=== PATIENT | male | born 1955 | race Caucasian/White ===

== ENCOUNTER 2017-12-04 10:18 | Inpatient (IN) | payer OTHER ==
[2017-12-04] MEDS ORDERED: HYDROmorphone 1 MG/ML Syringe IVPUSH ONE (11:13)
[2017-12-04] MEDS ORDERED: Sodium Chloride 0.9% 1,000 ML IV SCH (11:15)
--- NOTE | 2017-12-04 11:17 | EDM.PDOC ---
ED HPI GENERAL MEDICAL PROBLEM - General Chief Complaint: Abdominal Pain Stated Complaint: STOMACH PAIN Time Seen by Provider: 12/04/17 11:02 Source of Information: Reports: Patient History Limitations: Reports: No Limitations - History of Present Illness INITIAL COMMENTS - FREE TEXT/NARRATIVE: Comes from out of town with abdominal pain, centralized that started 2 days ago. No fever but has felt sweaty. Hasn't even felt this before. Denies surgery for daisy/appy. Described his pain as "my stomach is in knots"; dull and achy and then at times sharp. Slight nausea as well; no appetite. Tried a tums, no relief. Did go out to eat yesterday. 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) Middle Abdomen Pain Score (Numeric/FACES): 6 - Related Data Allergies Allergy/AdvReac Type Severity Reaction Status Date / Time No Known Allergies Allergy Verified 12/04/17 11:00 Home Meds: Home Meds Aspirin 81 mg PO DAILY 12/04/17 [History] Losartan [Cozaar] 100 mg PO DAILY 12/04/17 [History] Metoprolol Succinate 50 mg PO DAILY 12/04/17 [History] atorvaSTATin Calcium [Atorvastatin Calcium] 20 mg PO DAILY 12/04/17 [History] glipiZIDE [Glucotrol] 10 mg PO DAILY 12/04/17 [History] metFORMIN [Glucophage] 2,000 mg PO DAILY 12/04/17 [History] Past Medical History Cardiovascular History: Reports: Hypertension, Other (See Below) Other Cardiovascular History: aortic stenosis Endocrine/Metabolic History: Reports: Diabetes, Type II - Infectious Disease History Infectious Disease History: Reports: Chicken Pox Social & Family History - Tobacco Use Smoking Status *Q: Never Smoker - Caffeine Use Caffeine Use: Reports: Coffee, Soda - Recreational Drug Use Recreational Drug Use: No ED ROS GENERAL - Review of Systems Review Of Systems: See Below Constitutional: Reports: Decreased Appetite Respiratory: Reports: No Symptoms Cardiovascular: Reports: No Symptoms Endocrine: Reports: No Symptoms GI/Abdominal: Reports: Abdominal Pain, Nausea : Reports: No Symptoms Musculoskeletal: Reports: No Symptoms Skin: Reports: No Symptoms Neurological: Reports: No Symptoms ED EXAM, GENERAL - Physical Exam Exam: See Below Exam Limited By: No Limitations General Appearance: Alert, WD/WN, No Apparent Distress Nose: Normal Inspection Throat/Mouth: Normal Inspection Head: Atraumatic, Normocephalic Neck: Normal Inspection, Full Range of Motion Respiratory/Chest: No Respiratory Distress, Lungs Clear, Normal Breath Sounds Cardiovascular: Regular Rate, Rhythm, Systolic Murmur (2/6 pansystolic em) GI/Abdominal: Normal Bowel Sounds, Other (obese, tender with palpation) Back Exam: Full Range of Motion Extremities: Normal Range of Motion Neurological: Alert, Oriented, CN II-XII Intact, Normal Cognition Psychiatric: Normal Affect, Normal Mood Skin Exam: Warm, Dry, Intact Course - Vital Signs Last Recorded V/S: Last Vital Signs Temp 97.4 F 12/04/17 15:01 Pulse 63 12/04/17 15:01 Resp 16 12/04/17 15:01 BP 124/64 12/04/17 15:01 Pulse Ox 97 12/04/17 16:44 - Orders/Labs/Meds Orders: Active Orders 24 hr Category Date Time Status Abdomen Pelvis w Cont [CT] Stat Exams 12/04/17 11:59 Taken Medication Orders Acetaminophen (Tylenol) 650 mg PO Q4H PRN PRN Reason: Pain (Mild 1-3)/fever Aspirin (Aspirin) 81 mg PO DAILY [facility] Dextrose (Glutose 15) 15 gm PO ONETIME PRN PRN Reason: Hypoglycemia Dextrose/Water (Dextrose 50% In Water) 50 ml IV ONETIME PRN PRN Reason: Hypoglycemia Hydromorphone HCl (Dilaudid) 0.5 mg IVPUSH Q2H PRN PRN Reason: Pain Sodium Chloride (Normal Saline) 1,000 mls @ 125 mls/hr IV ASDIRECTED [facility] Insulin Aspart (Novolog) 0 unit SUBCUT QIDACANDBED [facility]; Protocol Losartan Potassium (Cozaar) 100 mg PO DAILY [facility] Metoprolol Succinate (Toprol Xl) 50 mg PO DAILY [facility] Ondansetron HCl (Zofran) 4 mg IV Q4H PRN PRN Reason: Nausea/Vomiting Pantoprazole Sodium (Protonix Iv) 40 mg IVPUSH Q24H [facility] Last Admin: 12/04/17 16:06 Dose: 40 mg Sodium Chloride (Saline Flush) 10 ml FLUSH ASDIRECTED PRN PRN Reason: Keep Vein Open Labs: Laboratory Tests 12/04/17 12/04/17 12/04/17 Range/Units 11:25 11:25 11:25 WBC 9.6 (4.5-11.0) K/uL RBC 4.80 (4.30-5.90) M/uL Hgb 13.8 (12.0-15.0) g/dL Hct 40.8 (40.0-54.0) % MCV 85 (80-98) fL MCH 29 (27-31) pg MCHC 34 (32-36) % Plt Count 147 L (150-400) K/uL Neut % (Auto) 74 H (36-66) % Lymph % (Auto) 14 L (24-44) % [place] % (Auto) 12 H (2-6) % Eos % (Auto) 1 L (2-4) % Baso % (Auto) 0 (0-1) % Sodium 137 L (140-148) mmol/L Potassium 4.4 (3.6-5.2) mmol/L Chloride 101 (100-108) mmol/L Carbon Dioxide 26 (21-32) mmol/L Anion Gap 14.4 H (5.0-14.0) mmol/L BUN 19 H (7-18) mg/dL Creatinine 1.0 (0.8-1.3) mg/dL Est Cr Clr Drug Dosing 80.53 mL/min Estimated GFR (MDRD) > 60 (>60) Glucose 184 H (74-106) mg/dL Calcium 9.2 (8.5-10.1) mg/dL Total Bilirubin 1.0 (0.2-1.0) mg/dL AST 23 (15-37) U/L ALT 38 (12-78) U/L Alkaline Phosphatase 50 (46-116) U/L Total Protein 7.1 (6.4-8.2) g/dL Albumin 3.4 (3.4-5.0) g/dL Globulin 3.7 H (2.3-3.5) g/dL Albumin/Globulin Ratio 0.9 L (1.2-2.2) Amylase 918 H (25-115) U/L Lipase 7347 H (73-393) U/L Meds: Medications Generic Name Dose Route Start Last Admin Trade Name Kyle PRN Reason Stop Dose Admin Acetaminophen 650 mg 12/04/17 14:52 Tylenol PO Q4H PRN Pain (Mild 1-3)/fever Aspirin 81 mg 12/05/17 09:00 Aspirin PO DAILY [facility] Dextrose 15 gm 12/04/17 14:52 Glutose 15 PO ONETIME PRN Hypoglycemia Dextrose/Water 50 ml 12/04/17 14:52 Dextrose 50% In Water IV ONETIME PRN Hypoglycemia Hydromorphone HCl 0.5 mg 12/04/17 14:52 Dilaudid IVPUSH Q2H PRN Pain Sodium Chloride 1,000 mls @ 125 mls/hr 12/04/17 14:52 Normal Saline IV ASDIRECTED [facility] Insulin Aspart 0 unit 12/04/17 17:00 Novolog SUBCUT QIDACANDBED [facility] Protocol Losartan Potassium 100 mg 12/05/17 09:00 Cozaar PO DAILY [facility] Metoprolol Succinate 50 mg 12/05/17 09:00 Toprol Xl PO DAILY [facility] Ondansetron HCl 4 mg 12/04/17 14:52 Zofran IV Q4H PRN Nausea/Vomiting Pantoprazole Sodium 40 mg 12/04/17 16:00 12/04/17 16:06 Protonix Iv IVPUSH 40 mg Q24H [facility] Administration Sodium Chloride 10 ml 12/04/17 14:52 Saline Flush FLUSH ASDIRECTED PRN Keep Vein Open Discontinued Medications Generic Name Dose Route Start Last Admin Trade Name Kyle PRN Reason Stop Dose Admin Hydromorphone HCl 1 mg 12/04/17 11:13 12/04/17 11:36 Dilaudid IVPUSH 12/04/17 11:14 1 mg ONETIME ONE Administration Hydromorphone HCl 1 mg 12/04/17 13:53 12/04/17 14:03 Dilaudid IVPUSH 1 mg Q1H PRN Administration Pain Sodium Chloride 1,000 mls @ 75 mls/hr 12/04/17 11:15 12/04/17 11:37 Normal Saline IV 75 mls/hr ASDIRECTED [facility] Administration Sodium Chloride 100 mls @ 3 mls/sec 12/04/17 12:15 12/04/17 12:30 Normal Saline IV 3 mls/sec ASDIRECTED [facility] Administration Iopamidol 150 ml 12/04/17 12:15 12/04/17 12:30 Isovue-300 (61%) IV 150 ml . DIRECTED [facility]A Administration Ondansetron HCl 4 mg 12/04/17 12:55 Zofran IVPUSH Q6H PRN Nausea/Vomiting - Re-Assessments/Exams Free Text/Narrative Re-Assessment/Exam: 12/04/17 12:33 [place] better after dilaudid; pain from 6 to a 3; resting comfortably Waiting for CT to come and take him for scan. Free Text/Narrative Re-Assessment/Exam: 12/04/17 14:02 Spoke with Hospitalist for admission. He is starting to have pain again, -12/13 Will given another 1 mg of Dilaudid. Departure - Departure Time of Disposition: 14:06 (Time hospitalist came to admit) Disposition: Admitted As Inpatient 65 Condition: Fair Clinical Impression: Pancreatitis Qualifiers: Chronicity: acute Pancreatitis type: unspecified pancreatitis type Acute pancreatitis complication: unspecified Qualified Code(s): K85.90 - Acute pancreatitis without necrosis or infection, unspecified - Discharge Information - Problem List & Annotations (1) Abdominal pain SNOMED Code(s): 40358591 Code(s): R10.9 - UNSPECIFIED ABDOMINAL PAIN Status: Acute Priority: Medium Current Visit: Yes Qualifiers: Abdominal location: left upper quadrant Qualified Code(s): R10.12 - Left upper quadrant pain (2) Pancreatitis SNOMED Code(s): 06482006 Code(s): K85.90 - ACUTE PANCREATITIS WITHOUT NECROSIS OR INFECTION, UNSP Status: Acute Current Visit: Yes Qualifiers: Chronicity: acute Pancreatitis type: unspecified pancreatitis type Acute pancreatitis complication: unspecified Qualified Code(s): K85.90 - Acute pancreatitis without necrosis or infection, unspecified - Problem List Review Problem List Initiated/Reviewed/Updated: Yes - My Orders Last 24 Hours: My Active Orders 12/04/17 11:59 Abdomen Pelvis w Cont [CT] Stat - Assessment/Plan Last 24 Hours: My Active Orders 12/04/17 11:59 Abdomen Pelvis w Cont [CT] Stat
[2017-12-04] MEDS ORDERED: Sodium Chloride 0.9% 100 ML IV SCH (12:15)
[2017-12-04] MEDS ORDERED: Iopamidol 612 MG/ML 150 ML Bottle IV SCH (12:15)
[2017-12-04] MEDS ORDERED: Ondansetron 4 MG/2 ML SDV IVPUSH PRN (12:55)
[2017-12-04] MEDS ORDERED: HYDROmorphone 1 MG/ML Syringe IVPUSH PRN (13:53)
--- NOTE | 2017-12-04 14:37 | PCM.HP ---
H&P History of Present Illness - General Date of Service: 12/04/17 Admit Problem/Dx: Admission Diagnosis/Problem Admission Diagnosis/Problem Pancreatitis Source of Information: Patient, Family, Provider, RN Notes Reviewed History Limitations: Reports: No Limitations - History of Present Illness Initial Comments - Free Text/Narative: Mr. Armijo is a 62-year-old gentleman who is admitted through the emergency department with abdominal pain and nausea secondary to pancreatitis. He has not felt well over the past 2 days with pain in his upper mid abdomen radiating to both flanks. Pain is been intermittent until today and has seemed to be worse after he is had something to eat. Today the pain seemed to be more intense and continuous associated with nausea so he presented to the emergency department for further evaluation. On evaluation lipase level is found to be significantly elevated 7300 and his amylase level is 900. He denies any previous history of pancreatitis. Liver enzymes are normal, he reports that he still has his gallbladder. CT scan of the abdomen showed evidence of inflammation around the pancreas consistent with pancreatitis. He does use alcohol on a regular basis, typically weekends where he may consume several ounces each night. Middle Abdomen Pain Score (Numeric/FACES): 6 - Related Data Allergies/Adverse Reactions: Allergies Allergy/AdvReac Type Severity Reaction Status Date / Time No Known Allergies Allergy Verified 12/04/17 11:00 Home Medications: Home Meds Aspirin 81 mg PO DAILY 12/04/17 [History] Losartan [Cozaar] 100 mg PO DAILY 12/04/17 [History] Metoprolol Succinate 50 mg PO DAILY 12/04/17 [History] atorvaSTATin Calcium [Atorvastatin Calcium] 20 mg PO DAILY 12/04/17 [History] glipiZIDE [Glucotrol] 10 mg PO DAILY 12/04/17 [History] metFORMIN [Glucophage] 2,000 mg PO DAILY 12/04/17 [History] Past Medical History Cardiovascular History: Reports: Hypertension, Other (See Below) Other Cardiovascular History: aortic stenosis Endocrine/Metabolic History: Reports: Diabetes, Type II - Infectious Disease History Infectious Disease History: Reports: Chicken Pox Social & Family History - Tobacco Use Smoking Status *Q: Never Smoker - Caffeine Use Caffeine Use: Reports: Coffee, Soda - Recreational Drug Use Recreational Drug Use: No H&P Review of Systems - Review of Systems: Review Of Systems: See Below General: Reports: Weakness, Diaphoresis, Decreased Appetite. Denies: Fever, Chills HEENT: Reports: No Symptoms Pulmonary: Reports: No Symptoms Cardiovascular: Reports: No Symptoms Gastrointestinal: Reports: Abdominal Pain, Decreased Appetite, Distension, Nausea, Vomiting. Denies: Black Stool, Bloody Stool, Constipation, Diarrhea, Difficulty Swallowing Genitourinary: Reports: No Symptoms Musculoskeletal: Reports: Joint Pain Skin: Reports: No Symptoms Psychiatric: Reports: No Symptoms Neurological: Reports: No Symptoms Hematologic/Lymphatic: Reports: No Symptoms Immunologic: Reports: No Symptoms Exam - Exam Exam: See Below - Vital Signs Vital Signs: Last Vital Signs Temp 97.6 F 12/04/17 11:15 Pulse 73 12/04/17 11:15 Resp 13 12/04/17 11:15 BP 130/85 12/04/17 11:15 Pulse Ox 96 12/04/17 11:15 Weight: 349 lb 13.977 oz - Exam Quality Assessment: DVT Prophylaxis General: Alert, Oriented, Cooperative, Moderate Distress HEENT: Conjunctiva Clear, Hearing Intact, Mucosa Moist & [place], Normal Nasal Septum, Posterior Pharynx Clear, Pupils Equal Neck: Supple, Trachea Midline, +2 Carotid Pulse wo Bruit Lungs: Clear to Auscultation, Normal Respiratory Effort Cardiovascular: Regular Rate, Regular Rhythm, Normal S1, Normal S2, Systolic Murmur. No: Diastolic Murmur GI/Abdominal Exam: Soft, Non-Tender, No Organomegaly, No Distention Extremities: Non-Tender, No Pedal Edema Skin: Warm, Dry, Intact Neurological: Cranial Nerves Intact, Strength Equal Bilateral, Normal Speech, Normal Tone, Sensation Intact. No: Focal Deficit Neuro Extensive - Mental Status: Alert, Oriented x3, Normal Mood/Affect, Normal Cognition, Memory Intact - Patient Data Lab Results Last 24 hrs: Laboratory Results - last 24 hr 12/04/17 12/04/17 12/04/17 Range/Units 11:25 11:25 11:25 WBC 9.6 (4.5-11.0) K/uL RBC 4.80 (4.30-5.90) M/uL Hgb 13.8 (12.0-15.0) g/dL Hct 40.8 (40.0-54.0) % MCV 85 (80-98) fL MCH 29 (27-31) pg MCHC 34 (32-36) % Plt Count 147 L (150-400) K/uL Neut % (Auto) 74 H (36-66) % Lymph % (Auto) 14 L (24-44) % [place] % (Auto) 12 H (2-6) % Eos % (Auto) 1 L (2-4) % Baso % (Auto) 0 (0-1) % Sodium 137 L (140-148) mmol/L Potassium 4.4 (3.6-5.2) mmol/L Chloride 101 (100-108) mmol/L Carbon Dioxide 26 (21-32) mmol/L Anion Gap 14.4 H (5.0-14.0) mmol/L BUN 19 H (7-18) mg/dL Creatinine 1.0 (0.8-1.3) mg/dL Est Cr Clr Drug Dosing 80.53 mL/min Estimated GFR (MDRD) > 60 (>60) Glucose 184 H (74-106) mg/dL Calcium 9.2 (8.5-10.1) mg/dL Total Bilirubin 1.0 (0.2-1.0) mg/dL AST 23 (15-37) U/L ALT 38 (12-78) U/L Alkaline Phosphatase 50 (46-116) U/L Total Protein 7.1 (6.4-8.2) g/dL Albumin 3.4 (3.4-5.0) g/dL Globulin 3.7 H (2.3-3.5) g/dL Albumin/Globulin Ratio 0.9 L (1.2-2.2) Amylase 918 H (25-115) U/L Lipase 7347 H (73-393) U/L Result Diagrams: 12/04/17 11:25 12/04/17 11:25 *Q Meaningful Use (ADM) - VTE Risk Assess *Q Each Risk Factor Represents 1 Point: Swollen Legs, Current, Obesity ( BMI > 25 kg/m2) Total Score 1 Point Risk Factors: 2 Each Risk Factor Represents 2 Points: Age 60 - 74 Years Total Score 2 Point Risk Factors: 2 Each Risk Factor Represents 3 Points: None Total Score 3 Point Risk Factors: 0 Each Risk Factor Represents 5 Points: None Total Score 5 Point Risk Factors: 0 Venous Thromboembolism Risk Factor Score *Q: 4 Problem List Initiated/Reviewed/Updated: Yes Orders Last 24hrs: Active Orders 24 hr Category Date Time Status Patient Status Manage Transfer [TRANSFER] Routine ADT 12/04/17 13:58 Ordered Peripheral IV Care [RC] . DIRECTED Care 12/04/17 11:12 Active NPO Now [Nothing per Oral Now Diet] [DIET] Diet 12/04/17 Dinner Active Abdomen Pelvis w Cont [CT] Stat Exams 12/04/17 11:59 Taken HYDROmorphone [Dilaudid] Med 12/04/17 13:53 Active 1 mg IVPUSH Q1H PRN Ondansetron [Zofran] Med 12/04/17 12:55 Active 4 mg IVPUSH Q6H PRN Sodium Chloride 0.9% [Normal Saline] 1,000 ml Med 12/04/17 11:15 Active IV ASDIRECTED Sodium Chloride 0.9% [Normal Saline] 100 ml Med 12/04/17 12:15 Active IV ASDIRECTED Peripheral IV Insertion Adult [OM.PC] Stat Oth 12/04/17 11:11 Ordered Resuscitation Status Routine Resus Stat 12/04/17 13:59 Ordered Medication Orders Hydromorphone HCl (Dilaudid) 1 mg IVPUSH Q1H PRN PRN Reason: Pain Last Admin: 12/04/17 14:03 Dose: 1 mg Sodium Chloride (Normal Saline) 1,000 mls @ 75 mls/hr IV ASDIRECTED [facility] Last Admin: 12/04/17 11:37 Dose: 75 mls/hr Sodium Chloride (Normal Saline) 100 mls @ 3 mls/sec IV ASDIRECTED [facility] Last Admin: 12/04/17 12:30 Dose: 3 mls/sec Ondansetron HCl (Zofran) 4 mg IVPUSH Q6H PRN PRN Reason: Nausea/Vomiting Assessment/Plan Comment:: ASSESSMENT AND PLAN ACUTE PANCREATITIS-likely secondary to alcohol use, there is no evidence of significant liver enzyme elevation. -Alcohol cessation -Nothing by mouth -IV fluids for hydration -Zofran as needed for nausea -IV Dilaudid for pain control -Reassess pancreatic enzymes in a.m. TYPE 2 DIABETES MELLITUS -4 times a day glucometers -Hold metformin and glipizide -Low-dose sliding scale NovoLog AORTIC STENOSIS HYPERTENSION -Continue outpatient medical regimen MAINTENANCE ISSUES -DVT prophylaxis; SCUDs -GI prophylaxis; Protonix 40 mg IV daily -Hoffmann catheter; not indicated -Nutrition; nothing by mouth -Nicotine dependence; not required CODE STATUS-FULL CODE ADMISSION STATUS-patient will be admitted to inpatient status, expect at least a 2 night hospital stay for evaluation and management of problems as outlined above. At the time of this admission I do not reasonably expected evaluation and management of this problem will require more than a 96 hour hospital stay. DISPOSITION-anticipate discharge to home after the hospital stay. PRIMARY CARE PROVIDER-patient is from the [facility] and receives his medical care there
[2017-12-04] MEDS ORDERED: Sodium Chloride 0.9% 10 ML Syringe FLUSH PRN (14:52)
[2017-12-04] MEDS ORDERED: Ondansetron 4 MG/2 ML SDV IV PRN (14:52)
[2017-12-04] MEDS ORDERED: Glucose Gel 15 GM in 37.5 GM Tube PO PRN (14:52)
[2017-12-04] MEDS ORDERED: 50% Dextrose in Water 50 ML Syringe IV PRN (14:52)
[2017-12-04] MEDS: Pantoprazole 40 MG Vial IVPUSH SCH (16:06)
[2017-12-04] MEDS: HYDROmorphone 0.5 MG/0.5 ML Syringe IVPUSH PRN ×2 (17:43→22:09)
[2017-12-04] MEDS: Insulin Aspart 100 Units/ML 3 ML Pen SUBCUT SCH ×2 (17:43→20:45)
[2017-12-04] MEDS: Sodium Chloride 0.9% 1,000 ML IV SCH (21:00)
[2017-12-05] MEDS: Sodium Chloride 0.9% 1,000 ML IV SCH ×3 (05:11→21:10)
[2017-12-05] MEDS: Insulin Aspart 100 Units/ML 3 ML Pen SUBCUT SCH ×4 (07:33→21:30)
--- NOTE | 2017-12-05 11:49 | PCM.PN ---
- General Info Date of Service: 12/05/17 Functional Status: Reports: Pain Controlled - Review of Systems General: Denies: Fever Gastrointestinal: Reports: Abdominal Pain Systems Review Comment:: No acute events overnight. Pain free initially this morning but now has mild epigastric pain. No nausea or vomiting. No BM since admission. Lipase level is trending down. Vitals have been stable. No fevers. - Patient Data Vitals - Most Recent: Last Vital Signs Temp 37.4 C 12/05/17 08:53 Pulse 79 12/05/17 08:53 Resp 18 12/05/17 08:53 BP 135/73 12/05/17 08:53 Pulse Ox 98 12/05/17 08:53 Weight - Most Recent: 158.7 kg I&O - Last 24 Hours: Intake & Output 12/04/17 12/05/17 12/05/17 22:59 06:59 14:59 Intake Total 540 952 Output Total 200 Balance 540 952 -200 Lab Results Last 24 Hours: Laboratory Results - last 24 hr 12/04/17 12/04/17 12/05/17 Range/Units 11:25 11:25 05:56 WBC (4.5-11.0) K/uL RBC (4.30-5.90) M/uL Hgb (12.0-15.0) g/dL Hct (40.0-54.0) % MCV (80-98) fL MCH (27-31) pg MCHC (32-36) % Plt Count (150-400) K/uL Neut % (Auto) (36-66) % Lymph % (Auto) (24-44) % [place] % (Auto) (2-6) % Eos % (Auto) (2-4) % Baso % (Auto) (0-1) % Sodium 137 L (140-148) mmol/L Potassium 4.4 (3.6-5.2) mmol/L Chloride 101 (100-108) mmol/L Carbon Dioxide 26 (21-32) mmol/L Anion Gap 14.4 H (5.0-14.0) mmol/L BUN 19 H (7-18) mg/dL Creatinine 1.0 (0.8-1.3) mg/dL Est Cr Clr Drug Dosing 80.53 mL/min Estimated GFR (MDRD) > 60 (>60) Glucose 184 H (74-106) mg/dL Calcium 9.2 (8.5-10.1) mg/dL Magnesium (1.8-2.4) mg/dL Total Bilirubin 1.0 (0.2-1.0) mg/dL AST 23 (15-37) U/L ALT 38 (12-78) U/L Alkaline Phosphatase 50 (46-116) U/L Total Protein 7.1 (6.4-8.2) g/dL Albumin 3.4 (3.4-5.0) g/dL Globulin 3.7 H (2.3-3.5) g/dL Albumin/Globulin Ratio 0.9 L (1.2-2.2) Amylase 918 H 477 H (25-115) U/L Lipase 7347 H 2744 H (73-393) U/L 12/05/17 12/05/17 Range/Units 05:56 05:56 WBC 7.8 (4.5-11.0) K/uL RBC 4.49 (4.30-5.90) M/uL Hgb 12.9 (12.0-15.0) g/dL Hct 38.9 L (40.0-54.0) % MCV 87 (80-98) fL MCH 29 (27-31) pg MCHC 33 (32-36) % Plt Count 140 L (150-400) K/uL Neut % (Auto) 70 H (36-66) % Lymph % (Auto) 17 L (24-44) % [place] % (Auto) 12 H (2-6) % Eos % (Auto) 1 L (2-4) % Baso % (Auto) 0 (0-1) % Sodium 139 L (140-148) mmol/L Potassium 4.2 (3.6-5.2) mmol/L Chloride 104 (100-108) mmol/L Carbon Dioxide 28 (21-32) mmol/L Anion Gap 11.2 (5.0-14.0) mmol/L BUN 17 (7-18) mg/dL Creatinine 1.0 (0.8-1.3) mg/dL Est Cr Clr Drug Dosing 80.20 mL/min Estimated GFR (MDRD) > 60 (>60) Glucose 145 H (74-106) mg/dL Calcium 8.5 (8.5-10.1) mg/dL Magnesium 1.3 L (1.8-2.4) mg/dL Total Bilirubin 0.9 (0.2-1.0) mg/dL AST 15 (15-37) U/L ALT 31 (12-78) U/L Alkaline Phosphatase 45 L (46-116) U/L Total Protein 6.7 (6.4-8.2) g/dL Albumin 3.1 L (3.4-5.0) g/dL Globulin 3.6 H (2.3-3.5) g/dL Albumin/Globulin Ratio 0.9 L (1.2-2.2) Amylase (25-115) U/L Lipase (73-393) U/L Med Orders - Current: Current Medications Acetaminophen (Tylenol) 650 mg PO Q4H PRN PRN Reason: Pain (Mild 1-3)/fever Aspirin (Aspirin) 81 mg PO DAILY [facility] Dextrose (Glutose 15) 15 gm PO ONETIME PRN PRN Reason: Hypoglycemia Dextrose/Water (Dextrose 50% In Water) 50 ml IV ONETIME PRN PRN Reason: Hypoglycemia Hydromorphone HCl (Dilaudid) 0.5 mg IVPUSH Q2H PRN PRN Reason: Pain Last Admin: 12/04/17 22:09 Dose: 0.5 mg Sodium Chloride (Normal Saline) 1,000 mls @ 125 mls/hr IV ASDIRECTED [facility] Last Admin: 12/05/17 05:11 Dose: 125 mls/hr Insulin Aspart (Novolog) 0 unit SUBCUT QIDACANDBED [facility]; Protocol Last Admin: 12/05/17 07:33 Dose: Not Given Losartan Potassium (Cozaar) 100 mg PO DAILY [facility] Metoprolol Succinate (Toprol Xl) 50 mg PO DAILY [facility] Ondansetron HCl (Zofran) 4 mg IV Q4H PRN PRN Reason: Nausea/Vomiting Pantoprazole Sodium (Protonix Iv) 40 mg IVPUSH Q24H [facility] Last Admin: 12/04/17 16:06 Dose: 40 mg Sodium Chloride (Saline Flush) 10 ml FLUSH ASDIRECTED PRN PRN Reason: Keep Vein Open Discontinued Medications Hydromorphone HCl (Dilaudid) 1 mg IVPUSH ONETIME ONE Stop: 12/04/17 11:14 Last Admin: 12/04/17 11:36 Dose: 1 mg Hydromorphone HCl (Dilaudid) 1 mg IVPUSH Q1H PRN PRN Reason: Pain Last Admin: 12/04/17 14:03 Dose: 1 mg Sodium Chloride (Normal Saline) 1,000 mls @ 75 mls/hr IV ASDIRECTED [facility] Last Admin: 12/04/17 11:37 Dose: 75 mls/hr Sodium Chloride (Normal Saline) 100 mls @ 3 mls/sec IV ASDIRECTED [facility] Last Admin: 12/04/17 12:30 Dose: 3 mls/sec Iopamidol (Isovue-300 (61%)) 150 ml IV . DIRECTED [facility] Last Admin: 12/04/17 12:30 Dose: 150 ml Ondansetron HCl (Zofran) 4 mg IVPUSH Q6H PRN PRN Reason: Nausea/Vomiting - Exam Quality Assessment: No: Supplemental Oxygen General: Alert, Oriented, Cooperative, No Acute Distress Neck: Supple Lungs: Normal Respiratory Effort GI/Abdominal Exam: Soft, No Distention, Tender (mild epigastric) Extremities: No Pedal Edema Psy/Mental Status: Alert, Normal Affect - Problem List Review Problem List Initiated/Reviewed/Updated: Yes - My Orders Last 24 Hours: My Active Orders 12/05/17 12:00 Magnesium Sulfate/Water [Magnesium Sulfate 2 GM in Water 50 ML] 2 gm Premix Bag 1 bag IV Q6H 12/06/17 05:00 BASIC METABOLIC PANEL,BMP [CHEM] Timed CBC W/O DIFF,HEMOGRAM [HEME] Timed (1) LIPASE [CHEM] Timed - Plan Plan:: ASSESSMENT AND PLAN ACUTE PANCREATITIS - likely secondary to alcohol use. Pain better today. No nausea or fevers. Lipase down to 2700. -Alcohol cessation -Nothing by mouth -IV fluids for hydration -Zofran as needed for nausea -IV Dilaudid for pain control -Reassess pancreatic enzymes in a.m., anticipate trial of clear liquids in the morning TYPE 2 DIABETES MELLITUS - sugars acceptable so far. -4 times a day glucometers -Hold metformin and glipizide, restart at time of discharge -Low-dose sliding scale NovoLog AORTIC STENOSIS - chronic and stable. HYPERTENSION - BP stable. -Continue outpatient medical regimen MAINTENANCE ISSUES -DVT prophylaxis; SCUDs -GI prophylaxis; PPI -Hoffmann catheter; not indicated -Nutrition; nothing by mouth DISPOSITION - anticipate discharge to home after the hospital stay. Av Castellanos MD
[2017-12-05] MEDS: Losartan 50 MG Tab PO SCH (12:04)
[2017-12-05] MEDS: Aspirin 81 MG Tab.Chew PO SCH (12:04)
[2017-12-05] MEDS: Metoprolol Succinate 50 MG Tab.ER PO SCH (12:04)
[2017-12-05] MEDS: Magnesium Sulfate/Water 2 GM in Premix Bag 1 BAG IV SCH ×2 (13:12→18:19)
[2017-12-05] MEDS: Acetaminophen 325 MG Tab PO PRN ×2 (15:03→22:53)
[2017-12-05] MEDS: Pantoprazole 40 MG Vial IVPUSH SCH (17:02)
[2017-12-06] MEDS: Magnesium Sulfate/Water 2 GM in Premix Bag 1 BAG IV SCH (01:57)
[2017-12-06] MEDS: Sodium Chloride 0.9% 1,000 ML IV SCH (05:00)
[2017-12-06] MEDS: Insulin Aspart 100 Units/ML 3 ML Pen SUBCUT SCH (08:15)
[2017-12-06] MEDS: Aspirin 81 MG Tab.Chew PO SCH (08:16)
[2017-12-06] MEDS: Metoprolol Succinate 50 MG Tab.ER PO SCH (08:16)
[2017-12-06] MEDS: Losartan 50 MG Tab PO SCH (08:17)
--- NOTE | 2017-12-06 10:39 | PCM.DCSUM1 ---
Discharge Summary - Hospital Course Brief History: 62-year-old male with history of suboptimally controlled diabetes and obesity with BMI greater than 40 who presented with epigastric abdominal pain. He was admitted for management of acute pancreatitis. Diagnosis: Stroke: No - Discharge Data Discharge Date: 12/06/17 Discharge Disposition: Home, Self-Care 01 Condition: Fair - Discharge Diagnosis/Problem(s) (1) Pancreatitis SNOMED Code(s): 86064540 ICD Code: K85.90 - ACUTE PANCREATITIS WITHOUT NECROSIS OR INFECTION, UNSP Status: Acute Qualifiers: Chronicity: acute Pancreatitis type: unspecified pancreatitis type Acute pancreatitis complication: unspecified Qualified Code(s): K85.90 - Acute pancreatitis without necrosis or infection, unspecified (2) Type 2 diabetes mellitus SNOMED Code(s): 42943171 ICD Code: E11.9 - TYPE 2 DIABETES MELLITUS WITHOUT COMPLICATIONS Status: Chronic Qualifiers: Diabetes mellitus fci insulin use: without product management internship use Diabetes mellitus complication status: with unspecified complications Qualified Code(s) : E11.8 - Type 2 diabetes mellitus with unspecified complications - Patient Summary/Data Hospital Course: Matty presented to the emergency room with epigastric abdominal pain and a general feeling of unwell. Workup in the emergency room was suggestive of pancreatitis based on CT scanning as well as an elevated lipase level. He was started on IV fluids and provided pain control. Nothing by mouth status was initiated. By the morning after admission he is feeling fair amount better with significant improvement in his pain. His lipase level has decreased by about half but remain significantly elevated. He did not have any fevers overnight or during the hospital stay for that matter. We continued nothing by mouth status and IV fluids with pain control for an additional day in the hospital. The morning of discharge his pain has improved but not quite resolved. He was started on clear liquids which she tolerated well with no increase in his pain. He has not used any pain medication about 24 hours. He is interested in going home at this point. I do believe he is safe for outpatient management since his lipase has essentially normalized and his pain has nearly resolved. He will be on a clear liquid diet for couple of days followed by full liquids and then a soft bland diet. The exact cause for his pancreatitis is not entirely clear by most suspicious that it was caused by alcohol. We did review the safe quantity of alcohol consumption for a male which was 2 ounces per day. He will be going home with ibuprofen and acetaminophen for mild pain and has a limited number of oxycodone for moderate or severe pain. - Patient Instructions Diet: Clear Liquid Diet Activity: As Tolerated Driving: Do Not Drive (if taking pain pills) Showering/Bathing: May Shower Notify Provider of: Fever, Increased Pain, Nausea and/or Vomiting Other/Special Instructions: 1. You were in the hospital for management of acute pancreatitis. The exact cause for your episode was not entirely clear with both medications and alcohol being potential culprits. Your condition has improved with treatment provided in the hospital. I recommend clear liquids today and then you may introduce a full liquid diet for the next two days. After that I recommend is soft and bland foods through the weekend. If you have mild pain you could use ibuprofen 600 mg every 6 hours as needed or acetaminophen 650 mg every 4 hours as needed. For moderate or severe pain use the oxycodone 5 mg tablets. 2. Continue your other medications as previously prescribed including the metformin and glipizide. 3. Please seek medical attention if you develop fever greater than 101, you have severe epigastric abdominal pain or if you have vomiting. - Discharge Plan Prescriptions/Med Rec: oxyCODONE 5 mg PO Q6H PRN #5 tab PRN Reason: Pain Home Medications: Home Meds Aspirin 81 mg PO DAILY 12/04/17 [History] Losartan [Cozaar] 100 mg PO DAILY 12/04/17 [History] Metoprolol Succinate 50 mg PO DAILY 12/04/17 [History] atorvaSTATin Calcium [Atorvastatin Calcium] 20 mg PO DAILY 12/04/17 [History] glipiZIDE [Glucotrol] 10 mg PO DAILY 12/04/17 [History] metFORMIN [Glucophage] 2,000 mg PO DAILY 12/04/17 [History] oxyCODONE 5 mg PO Q6H PRN #5 tab 12/06/17 [Rx] Patient Handouts: Oxycodone tablets or capsules, Acute Pancreatitis Referrals: PCP,None [Primary Care Provider] - (f/u with your primary care if symptoms do not continue to improve or if they get worse) - Discharge Summary/Plan Comment DC Time >30 min.: No - Patient Data Vitals - Most Recent: Last Vital Signs Temp 37.2 C 12/06/17 07:41 Pulse 73 12/06/17 08:16 Resp 16 12/06/17 07:41 BP 139/79 12/06/17 08:17 Pulse Ox 97 12/06/17 07:41 Weight - Most Recent: 158.7 kg I&O - Last 24 hours: Intake & Output 12/05/17 12/06/17 12/06/17 22:59 06:59 14:59 Intake Total 1660 1175 1024 Output Total 450 700 1 Balance 7982 106 1314 Lab Results - Last 24 hrs: Laboratory Results - last 24 hr 12/06/17 12/06/17 Range/Units 04:45 04:45 WBC 7.3 (4.5-11.0) K/uL RBC 4.37 (4.30-5.90) M/uL Hgb 12.7 (12.0-15.0) g/dL Hct 38.2 L (40.0-54.0) % MCV 87 (80-98) fL MCH 29 (27-31) pg MCHC 33 (32-36) % Plt Count 140 L (150-400) K/uL Sodium 139 L (140-148) mmol/L Potassium 4.4 (3.6-5.2) mmol/L Chloride 106 (100-108) mmol/L Carbon Dioxide 26 (21-32) mmol/L Anion Gap 11.4 (5.0-14.0) mmol/L BUN 14 (7-18) mg/dL Creatinine 1.1 (0.8-1.3) mg/dL Est Cr Clr Drug Dosing 72.91 mL/min Estimated GFR (MDRD) > 60 (>60) Glucose 124 H (74-106) mg/dL Calcium 8.3 L (8.5-10.1) mg/dL Lipase 595 H (73-393) U/L Med Orders - Current: Current Medications Acetaminophen (Tylenol) 650 mg PO Q4H PRN PRN Reason: Pain (Mild 1-3)/fever Last Admin: 12/05/17 22:53 Dose: 650 mg Aspirin (Aspirin) 81 mg PO DAILY MARTHA Last Admin: 12/06/17 08:16 Dose: 81 mg Dextrose (Glutose 15) 15 gm PO ONETIME PRN PRN Reason: Hypoglycemia Dextrose/Water (Dextrose 50% In Water) 50 ml IV ONETIME PRN PRN Reason: Hypoglycemia Hydromorphone HCl (Dilaudid) 0.5 mg IVPUSH Q2H PRN PRN Reason: Pain Last Admin: 12/04/17 22:09 Dose: 0.5 mg Sodium Chloride (Normal Saline) 1,000 mls @ 125 mls/hr IV ASDIRECTED [facility] Last Admin: 12/06/17 05:00 Dose: 125 mls/hr Insulin Aspart (Novolog) 0 unit SUBCUT QIDACANDBED [facility]; Protocol Last Admin: 12/06/17 08:15 Dose: Not Given Losartan Potassium (Cozaar) 100 mg PO DAILY [facility] Last Admin: 12/06/17 08:17 Dose: 100 mg Metoprolol Succinate (Toprol Xl) 50 mg PO DAILY [facility] Last Admin: 12/06/17 08:16 Dose: 50 mg Ondansetron HCl (Zofran) 4 mg IV Q4H PRN PRN Reason: Nausea/Vomiting Pantoprazole Sodium (Protonix Iv) 40 mg IVPUSH Q24H [facility] Last Admin: 12/05/17 17:02 Dose: 40 mg Sodium Chloride (Saline Flush) 10 ml FLUSH ASDIRECTED PRN PRN Reason: Keep Vein Open Discontinued Medications Hydromorphone HCl (Dilaudid) 1 mg IVPUSH ONETIME ONE Stop: 12/04/17 11:14 Last Admin: 12/04/17 11:36 Dose: 1 mg Hydromorphone HCl (Dilaudid) 1 mg IVPUSH Q1H PRN PRN Reason: Pain Last Admin: 12/04/17 14:03 Dose: 1 mg Sodium Chloride (Normal Saline) 1,000 mls @ 75 mls/hr IV ASDIRECTED [facility] Last Admin: 12/04/17 11:37 Dose: 75 mls/hr Sodium Chloride (Normal Saline) 100 mls @ 3 mls/sec IV ASDIRECTED [facility] Last Admin: 12/04/17 12:30 Dose: 3 mls/sec Magnesium Sulfate 2 gm/ Premix 50 mls @ 25 mls/hr IV Q6H [facility] Stop: 12/06/17 02:59 Last Admin: 12/06/17 01:57 Dose: 25 mls/hr Iopamidol (Isovue-300 (61%)) 150 ml IV . DIRECTED [facility] Last Admin: 12/04/17 12:30 Dose: 150 ml Ondansetron HCl (Zofran) 4 mg IVPUSH Q6H PRN PRN Reason: Nausea/Vomiting - Exam Quality Assessment: Denies: Supplemental Oxygen General: Reports: Alert, Oriented, Cooperative, No Acute Distress Lungs: Reports: Normal Respiratory Effort GI/Abdominal Exam: No Distention Extremities: No Pedal Edema Psy/Mental Status: Reports: Alert, Normal Affect
== END 2017-12-06 10:38 | disposition home or self-care (01) | DRG 439 ==
LOC: JP.ED 10:18 → JP.MS 13:58
PROVIDERS: ADMIT Hospitalist; ATTEND Internal Medicine
DX: K85.90 Acute pancreatitis without necrosis or infection, unspecified (principal); Z68.42 Body mass index [BMI] 45.0-49.9, adult; I10 Essential (primary) hypertension; E11.9 Type 2 diabetes mellitus without complications; I35.0 Nonrheumatic aortic (valve) stenosis; E66.9 Obesity, unspecified; F10.10 Alcohol abuse, uncomplicated; Z79.82 Long term (current) use of aspirin; Z79.84 Long term (current) use of oral hypoglycemic drugs
CPT/HCPCS: 36415; 74177; 80048; 80053; 82150; 82962; 83690; 83735; 85025; 85027; 94762; 96360; 96361; 99285-25; A9270-GY; C9113; J1170; J3475; J7030